=== PATIENT | male | born 1950 | race Caucasian/White ===

== ENCOUNTER 2019-11-03 16:32 | Emergency (ER) | payer MEDICARE, OTHER ==
[~2019-11-03] VITALS: Ht 165.1 cm; Wt 104.3 kg
[~2019-11-03 16:32] MED LIST: ACTOS15 MG PO; ASPIRIN81 M1 PO; DIOVAN80 MG PO; LOVASTATIN20 MG PO; VERAPAMIL ER240 MG PO
[2019-11-03] MEDS ORDERED: SODIUM CHLORIDE 0.9% 1000ML 1,000 ML IV STA (16:54)
[2019-11-03] MEDS ORDERED: AZITHROMYCIN 500MG/NS 250 ML 250 ML IV ONE (17:00)
[2019-11-03] MEDS ORDERED: CEFTRIAXONE SOD 1 GM/NS 50 ML 50 ML IV ONE (17:00)
[2019-11-03 17:12] LABS: BASOPHILS % 0.5 % (0.0-1.0); EOSINOPHILS # (AUTO) 0.2 (0.0-0.4); EOSINOPHILS % 2.1 % (0.0-6.0); HEMATOCRIT 35.2 % (38.2-49.6); HEMOGLOBIN 11.2 g/dL (14.0-18.0); LYMPHOCYTES # (AUTO) 2.2 (1.0-3.2); LYMPHOCYTES % 24.9 % (18.0-39.1); MEAN CORPUSCULAR HEMOGLOBIN 30.1 pg (28-32); MEAN CORPUSCULAR HGB CONC 31.8 g/dL (31-35); MEAN CORPUSCULAR VOLUME 94.6 fL (81-99); MONOCYTES # (AUTO) 0.6 (0.2-0.8); MONOCYTES % 7.3 % (4.4-11.3); NEUTROPHILS # (AUTO) 5.4 (2.1-6.9); NEUTROPHILS % 61.1 % (38.7-80.0); PLATELET COUNT 267 x10e3/uL (140-360); RED BLOOD COUNT 3.72 x10e6/uL (4.3-5.7); RED CELL DISTRIBUTION WIDTH 13.7 % (11.7-14.4)
[2019-11-03 17:23] LABS: INR 1.05; PROTHROMBIN TIME 14.4 seconds (11.9-14.5)
[2019-11-03 17:24] LABS: PARTIAL THROMBOPLASTIN TIME 35.8 seconds (23.8-35.5)
[2019-11-03 17:38] LABS: CREATINE KINASE MB 8.6 ng/mL (0-5.0)
[2019-11-03 17:39] LABS: ALBUMIN 2.3 g/dL (3.5-5.0); ALBUMIN/GLOBULIN RATIO 0.4 (0.8-2.0); CALCIUM 9.6 mg/dL (8.4-10.2); CREATININE, SERUM 6.52 mg/dL (0.72-1.25); MAGNESIUM 2.7 MG/DL (1.3-2.1)
[2019-11-03 17:52] LABS: B-TYPE NATRIURETIC PEPTIDE2 11.8 pg/mL (0-100)
--- NOTE | 2019-11-03 17:54 | Diagnostic Imaging Report ---
Examination: Single AP view of the chest. COMPARISON: None. INDICATION: Chest breath DISCUSSION: Lines/tubes: None. Lungs: Bilateral ground glass airspace consolidations. Pleura: No pleural effusion or pneumothorax. Heart and mediastinum: The heart and the mediastinum are unremarkable. Bones and soft tissues: No acute bony abnormalities. IMPRESSION: 1. Multifocal pneumonia Signed by: Dr. Jauqan Bro M.D. on 11/03/2019 5:51 PM
--- NOTE | 2019-11-03 18:58 | NUR ---
report given to John ESTRELLA
--- NOTE | 2019-11-03 19:01 | NUR ---
walking rounds with russell hutchins
[2019-11-03] MEDS ORDERED: SODIUM BICARBONATE 8.4% INJ 50 ML SYR IV STA (21:04)
[2019-11-03] MEDS ORDERED: SOD POLYSTYRENE SULFONATE SUSP 15 GM/60 ML BTL PO ONE (21:15)
--- NOTE | 2019-11-04 00:53 | Emergency Department Note ---
History of Present Illnes History of Present Illness Chief Complaint: Respiratory History of Present Illness This is a 69 year old male arrives today via cough fever and generalized malaise. Historian: Patient Arrival Mode: Car Apple Picking Supervisor Required: Yes Past Medical/Family History Physician Review I have reviewed the patient's past medical and family history. Any updates have been documented here. Past Medical History Recent Fever: No Clinical Suspicion of Infectio: Yes New/Unexplained Change in Ment: No Past Medical History: Hypertension Other Medical History: KIDNEY DISEASE Other Surgery: ROTATOR CUFF Social History Smoking Cessation: Never Smoker Counseling Performed: No Alcohol Use: None Any Illegal Drug Use: No Other Last Tetanus: UNK Any Pre-Existing Lines (PICC,: No Review of Systems Review of Systems Constitutional: Reports as per HPI, Reports fever EENTM: Reports no symptoms Cardiovascular: Reports no symptoms Respiratory: Reports as per HPI, Reports cough Gastrointestinal: Reports no symptoms Genitourinary: Reports no symptoms Musculoskeletal: Reports no symptoms Integumentary: Reports no symptoms Neurological: Reports no symptoms Psychological: Reports no symptoms Endocrine: Reports no symptoms Hematological/Lymphatic: Reports no symptoms Physical Exam Related Data Allergies: Coded Allergies: No Known Allergies (Unverified , 06/16/12) Triage Vital Signs Vital Signs Date Time Temp Pulse Resp B/P (MAP) Pulse Ox O2 Delivery O2 Flow Rate FiO2 11/03/19 16:42 98.2 133 28 172/86 95 Room Air Vital signs reviewed: Yes Physical Exam CONSTITUTIONAL Constitutional: Present well-developed, Present well-nourished, Present obese HENT HENT: Present normocephalic, Present atraumatic, Present oropharynx clear/moist, Present nose normal HENT L/R: Present left ext ear normal, Present right ext ear normal EYES Eyes: Reports PERRL, Reports conjunctivae normal NECK Neck: Present ROM normal PULMONARY Pulmonary: Present effort normal, Present breath sounds normal CARDIOVASCULAR Cardiovascular: Present regular rhythm, Present heart sounds normal, Present capillary refill normal, Present normal rate GASTROINTESTINAL Abdominal: Present soft, Present nontender, Present bowel sounds normal GENITOURINARY Genitourinary: Present exam deferred SKIN Skin: Present warm, Present dry MUSCULOSKELETAL Musculoskeletal: Present ROM normal NEUROLOGICAL Neurological: Present alert, Present oriented x 3, Present no gross motor or sensory deficits PSYCHOLOGICAL Psychological: Present mood/affect normal, Present judgement normal Results Laboratory Result Diagram: 11/03/19 1701 11/03/19 1701 Laboratory Laboratory Tests Test 11/03/19 17:17 11/03/19 17:01 White Blood Count 8.77 x10e3/uL (4.8-10.8) Red Blood Count 3.72 x10e6/uL (4.3-5.7) Hemoglobin 11.2 g/dL (14.0-18.0) Hematocrit 35.2 % (38.2-49.6) Mean Corpuscular Volume 94.6 fL (81-99) Mean Corpuscular Hemoglobin 30.1 pg (28-32) Mean Corpuscular Hemoglobin Concent 31.8 g/dL (31-35) Red Cell Distribution Width 13.7 % (11.7-14.4) Platelet Count 267 x10e3/uL (140-360) Neutrophils (%) (Auto) 61.1 % (38.7-80.0) Lymphocytes (%) (Auto) 24.9 % (18.0-39.1) Monocytes (%) (Auto) 7.3 % (4.4-11.3) Eosinophils (%) (Auto) 2.1 % (0.0-6.0) Basophils (%) (Auto) 0.5 % (0.0-1.0) Neutrophils # (Auto) 5.4 (2.1-6.9) Lymphocytes # (Auto) 2.2 (1.0-3.2) Monocytes # (Auto) 0.6 (0.2-0.8) Eosinophils # (Auto) 0.2 (0.0-0.4) Basophils # (Auto) 0.0 (0.0-0.1) Absolute Immature Granulocyte (auto 0.36 x10e3/uL (0-0.1) Prothrombin Time 14.4 seconds (11.9-14.5) Prothromb Time International Ratio 1.05 Activated Partial Thromboplast Time 35.8 seconds (23.8-35.5) Sodium Level 139 mmol/L (136-145) Potassium Level 5.0 mmol/L (3.5-5.1) Chloride Level 110 mmol/L (98-107) Carbon Dioxide Level 15 mmol/L (22-29) Anion Gap 19.0 mmol/L (8-16) Blood Urea Nitrogen 148 mg/dL (7-26) Creatinine 6.52 mg/dL (0.72-1.25) Estimat Glomerular Filtration Rate 8 ML/MIN (60-) BUN/Creatinine Ratio 23 (6-25) Glucose Level 167 mg/dL (74-118) Lactic Acid Level 1.0 mmol/L (0.5-2.0) Calcium Level 9.6 mg/dL (8.4-10.2) Magnesium Level 2.7 MG/DL (1.3-2.1) Total Bilirubin 0.4 mg/dL (0.2-1.2) Aspartate Amino Transf (AST/SGOT) 15 IU/L (5-34) Alanine Aminotransferase (ALT/SGPT) 60 IU/L (0-55) Alkaline Phosphatase 56 IU/L (40-150) Creatine Kinase 73 IU/L (30-200) Creatine Kinase MB 8.60 ng/mL (0-5.0) Troponin I 0.015 ng/mL (0-0.300) B-Type Natriuretic Peptide 11.8 pg/mL (0-100) Total Protein 7.9 g/dL (6.5-8.1) Albumin 2.3 g/dL (3.5-5.0) Globulin 5.6 g/dL (2.3-3.5) Albumin/Globulin Ratio 0.4 (0.8-2.0) Lab results reviewed: Yes Imaging Imaging results reviewed: Yes Impressions IMPRESSION: 1. Multifocal pneumonia Assessment & Plan Medical Decision Making MDM 69-year-old male arrives to the ED with cough fever generalized malaise findings consistent with [place] 19. Patient knows he has a coronavirus. Patient noted to have a marked elevation his baseline creatinine from 2 to approximately 7. Bicarbonate noted to be low, potassium noted to be 5.0. Spoke to Dr. Duenas patient's overlock hemmer to agreed patient required hospital admission for further workup and management in the setting was acute on chronic renal failure. Patient required transfer to outside hospital secondary to [facility] capacity. Assessment & Plan Final Impression: (1) Acute on chronic renal failure (2) COVID-19 Last Vital Signs Date Time Temp Pulse Resp B/P (MAP) Pulse Ox O2 Delivery O2 Flow Rate FiO2 11/03/19 22:55 101 24 175/94 99 11/03/19 16:42 98.2 Room Air Home Meds Reported Medications Aspirin (ASPIRIN) 81 Mg Tablet, 81 MG PO DAILY 06/16/12 Verapamil Hcl (VERAPAMIL ER) 240 Mg Tabsr, 240 MG PO DAILY 06/16/12 Pioglitazone Hcl* (ACTOS*) 15 Mg Tablet, 15 MG PO DAILY 06/16/12 Valsartan (DIOVAN) 80 Mg Tab, 160 MG PO DAILY 06/16/12 Lovastatin (LOVASTATIN) 20 Mg Tablet, 40 MG PO BID 06/16/12 Medications in the ED Sodium Chloride 1,000 ml @ 0 mls/hr Q0M STAT IV Last administered on 11/03/19at 17:10; Admin Dose 999 MLS/HR; Start 11/03/19 at 16:54; Stop 11/03/19 at 16:58; Status DC Ceftriaxone Sodium 50 ml @ 100 mls/hr ONCE ONCE IV Last administered on 11/03/19at 17:10; Admin Dose 100 MLS/HR; Start 11/03/19 at 17:00; Stop 11/03/19 at 17:29; Status DC Azithromycin 250 ml @ 200 mls/hr NOW ONCE IV Last administered on 11/03/19at 17:32; Admin Dose 200 MLS/HR; Start 11/03/19 at 17:00; Stop 11/03/19 at 18:14; Status DC Sodium Bicarbonate 50 ml NOW STAT IV Last administered on 11/03/19at 21:16; Admin Dose 50 ML; Start 11/03/19 at 21:04; Stop 11/03/19 at 21:06; Status DC Sodium Polystyrene Sulfonate 30 gm ONCE ONCE PO Last administered on 11/03/19at 21:28; Admin Dose 30 GM; Start 11/03/19 at 21:15; Stop 11/03/19 at 21:16; Status DC MINDY MOCTEZUMA DO Nov 04, 2019 00:53
[2019-11-04 03:09] VITALS: BP 150/102
== END 2019-11-04 03:11 | disposition short-term general hospital (02) ==
LOC: ER 16:45
DX: U07.1 COVID-19 (principal); N17.9 Acute kidney failure, unspecified; R50.9 Fever, unspecified; R05 Cough; I10 Essential (primary) hypertension
CPT/HCPCS: 36415; 71045; 80053; 82550; 82553; 83605; 83735; 83880; 84484; 85025; 85610; 85730; 87040; 87635; 93005; 99284; J0456; J0696; J7030; U0002

== ENCOUNTER 2020-01-01 08:35 | Inpatient (IN) | payer MEDICARE, OTHER ==
[~2020-01-01] VITALS: Ht 165.1 cm; Wt 94.3 kg
--- NOTE | 2020-01-01 09:09 | Emergency Department Note ---
History of Present Illnes History of Present Illness Chief Complaint: General Medicine Complaints History of Present Illness This is a 69 year old male Chief Complaint Comment X 4 DAYS "FEELING BAD". DIZZINESS, WORSE WITH MOVEMENT. BILATERAL THIGH PAIN, MUSCLE WEAKNESS W/COVID. Dizziness is made worse by eating up and moving around. He has been doing more darker completely. He has pain to his proximal bilateral upper extremities and proximal bilateral lower extremities. Historian: Patient Arrival Mode: Car Additional Treatment ELECTRONIC INTEGRATED SYSTEMS MECHANIC: NONE Creative Writing Teacher Required: No Onset (how long ago): day(s) (4) Location: Extremitis Quality: dull Radiation: Reports non-radiation Severity: mild Onset quality: gradual Duration (how long): day(s) (4) Timing of current episode: constant Progression: unchanged Chronicity: new Context: Denies recent illness, Denies recent surgery Relieving factors: none Exacerbating factors: none Associated symptoms: Reports denies other symptoms Treatments prior to arrival: none Past Medical/Family History Physician Review I have reviewed the patient's past medical and family history. Any updates have been documented here. Past Medical History Recent Fever: No Clinical Suspicion of Infectio: No New/Unexplained Change in Ment: No Past Medical History: Hypertension, Diabetes, Hypothyroidism, Hyperlipedemia Other Medical History: KIDNEY DISEASE Other Surgery: ROTATOR CUFF Other Last Tetanus: UNK Review of Systems Review of Systems Constitutional: Reports as per HPI EENTM: Reports no symptoms Cardiovascular: Reports no symptoms Respiratory: Reports no symptoms Gastrointestinal: Reports no symptoms Genitourinary: Reports no symptoms Musculoskeletal: Reports as per HPI, Reports muscle pain Integumentary: Reports no symptoms Neurological: Reports no symptoms, Reports other (Light headed with ambulation) Psychological: Reports no symptoms Endocrine: Reports no symptoms Hematological/Lymphatic: Reports no symptoms Physical Exam Related Data Allergies: Coded Allergies: No Known Allergies (Unverified , 01/01/20) Triage Vital Signs Vital Signs Date Time Temp Pulse Resp B/P (MAP) Pulse Ox O2 Delivery O2 Flow Rate FiO2 01/01/20 08:59 98.2 79 18 126/84 98 Room Air Vital signs reviewed: Yes Physical Exam CONSTITUTIONAL Constitutional: Present well-developed, Present well-nourished HENT HENT: Present normocephalic, Present atraumatic, Present oropharynx clear/moist, Present nose normal HENT L/R: Present left ext ear normal, Present right ext ear normal EYES Eyes: Reports PERRL, Reports conjunctivae normal NECK Neck: Present ROM normal PULMONARY Pulmonary: Present effort normal, Present breath sounds normal CARDIOVASCULAR Cardiovascular: Present regular rhythm, Present heart sounds normal, Present capillary refill normal, Present normal rate GASTROINTESTINAL Abdominal: Present soft, Present nontender, Present bowel sounds normal GENITOURINARY Genitourinary: Present exam deferred SKIN Skin: Present warm, Present dry MUSCULOSKELETAL Musculoskeletal: Present ROM normal NEUROLOGICAL Neurological: Present alert, Present oriented x 3, Present no gross motor or sensory deficits; Absent cranial nerve deficit, Absent sensory deficit, Absent weakness PSYCHOLOGICAL Psychological: Present mood/affect normal, Present judgement normal Procedures 12 Lead ECG Interpretation ECG Interpretation : Creative Writing Teacher: Interpreted by ED physician Date: Jan 01, 2020 Prior ECG tracings: reviewed Rhythm: sinus rhythm Rate: normal BPM: 70 QRS axis: normal ST segments normal: Yes T waves normal: Yes Clinical Impression: non-specific ECG Assessment & Plan Medical Decision Making MDM 69-year-old male presents with generalized non-specific complaints such as muscle fatigue and pain. Additionally states he is occasionally lightheaded with ambulation. Examination is largely unremarkable. Initial differential includes stroke versus heart failure versus muscle pain. Workup significant for Rhabdomyolysis. He was given 2L NS and discussed with Dr. Peoples who has agreed to admit. Reassessment Reassessment time: 11:48 Reassessment Well appearing, NAD Assessment & Plan Final Impression: (1) Rhabdomyolysis Depart Disposition: ADMITTED Last Vital Signs Date Time Temp Pulse Resp B/P (MAP) Pulse Ox O2 Delivery O2 Flow Rate FiO2 01/01/20 08:59 98.2 79 18 126/84 98 Room Air Home Meds Reported Medications Aspirin (ASPIRIN) 81 Mg Tablet, 81 MG PO DAILY 06/16/12 Verapamil Hcl (VERAPAMIL ER) 240 Mg Tabsr, 240 MG PO DAILY 06/16/12 Pioglitazone Hcl* (ACTOS*) 15 Mg Tablet, 15 MG PO DAILY 06/16/12 Valsartan (DIOVAN) 80 Mg Tab, 160 MG PO DAILY 06/16/12 Lovastatin (LOVASTATIN) 20 Mg Tablet, 40 MG PO BID 06/16/12 ELISA PATTEN MD Jan 01, 2020 09:09
[2020-01-01 09:36] LABS: BASOPHILS % 0.3 % (0.0-1.0); EOSINOPHILS # (AUTO) 0.1 (0.0-0.4); EOSINOPHILS % 1.5 % (0.0-6.0); HEMATOCRIT 31.2 % (38.2-49.6); HEMOGLOBIN 10.1 g/dL (14.0-18.0); LYMPHOCYTES # (AUTO) 1.5 (1.0-3.2); LYMPHOCYTES % 15.8 % (18.0-39.1); MEAN CORPUSCULAR HEMOGLOBIN 30.6 pg (28-32); MEAN CORPUSCULAR HGB CONC 32.4 g/dL (31-35); MEAN CORPUSCULAR VOLUME 94.5 fL (81-99); MONOCYTES # (AUTO) 0.7 (0.2-0.8); MONOCYTES % 7.5 % (4.4-11.3); NEUTROPHILS # (AUTO) 6.8 (2.1-6.9); NEUTROPHILS % 74.5 % (38.7-80.0); PLATELET COUNT 247 x10e3/uL (140-360); RED CELL DISTRIBUTION WIDTH 13.9 % (11.7-14.4)
[2020-01-01 10:03] LABS: ALBUMIN 3.7 g/dL (3.5-5.0); ALBUMIN/GLOBULIN RATIO 1.4 (0.8-2.0); ANION GAP 12.9 mmol/L (8-16); CALCIUM 8.8 mg/dL (8.4-10.2); CREATININE, SERUM 3.6 mg/dL (0.72-1.25); POTASSIUM 4.9 mmol/L (3.5-5.1)
--- NOTE | 2020-01-01 10:07 | Diagnostic Imaging Report ---
EXAM: CHEST SINGLE (NOT PORTABLE) DATE: 01/01/2020 9:40 AM INDICATION: Dizziness, weakness COMPARISON: 11/03/2019 FINDINGS: The trachea is midline. There is minimal bibasilar atelectasis. The lungs are otherwise symmetrically expanded without evidence for large focal consolidation, pneumothorax, or significant pleural effusion. The cardiomediastinal silhouette is stable in appearance. No acute osseous abnormality is identified. The surrounding soft tissues are unremarkable. IMPRESSION: No acute cardiopulmonary process identified. Signed by: Dr. Efrain Cooper MD on 01/01/2020 10:04 AM
--- NOTE | 2020-01-01 10:09 | Diagnostic Imaging Report ---
Examination: CT BRAIN WO History:Dizziness Comparison studies:None Technique: Axial images were obtained from the skull base to the vertex. Coronal and sagittal images reconstructed from the axial data. Dose modulation, iterative reconstruction, and/or weight based adjustment of the mA/kV was utilized to reduce the radiation dose to as low as reasonably achievable. Intravenous contrast: None Findings: Scalp: No abnormalities. Bones: No fractures, blastic or lytic lesions. Brain sulci: Appropriate for age. Ventricles: Normal in size and configuration. No hydrocephalus. Extra-axial space: No abnormalities. Parenchyma: No masses, hemorrhage, or acute or chronic cortical based vascular insults.. Sellar/suprasellar region: No abnormalities. Craniocervical junction: Patent foramen magnum. No Chiari one malformation. Incidental findings: Atherosclerotic calcification of the cavernous and supraclinoid internal carotid and V4 segments of the bilateral vertebral arteries. Impression: No acute intracranial abnormality. Signed by: Dr. Jenny Sarkar M.D. on 01/01/2020 10:06 AM
--- NOTE | 2020-01-01 10:09 | Diagnostic Imaging Report ---
EXAM: HIP RIGHT 2-3 VW (+/- PELVIS) DATE: 01/01/2020 9:40 AM INDICATION: Right hip pain COMPARISON: None FINDINGS: There is no evidence for acute fracture or dislocation within the pelvis or right hip. Bony mineralization is within normal limits. No focal lytic or blastic abnormality is identified. There are degenerative changes of the visualized lumbosacral spine. Mild/moderate degenerative changes noted of the bilateral hips. The visualized intrapelvic contents and surrounding soft tissues are unremarkable. IMPRESSION: No acute radiographic abnormality identified within the pelvis or right hip. Signed by: Dr. Efrain Cooper MD on 01/01/2020 10:06 AM
[2020-01-01] MEDS ORDERED: SODIUM CHLORIDE 0.9% 1000ML 1,000 ML IV SCH ×2 (10:30→12:00)
[2020-01-01 10:43] LABS: INR 0.96; PROTHROMBIN TIME 13.3 seconds (11.9-14.5)
[2020-01-01 11:04] LABS: BILIRUBIN,URINE NEGATIVE (NEGATIVE); CLARITY,URINE CLEAR (CLEAR); COLOR,URINE YELLOW (YELLOW); KETONES,URINE NEGATIVE (NEGATIVE); LEUKOCYTE ESTERASE ,URINE NEGATIVE (NEGATIVE); NITRITE,URINE NEGATIVE (NEGATIVE); PROTEIN,URINE DIPSTICK >=300 (NEGATIVE); URINE UROBILINOGEN 0.2 mg/dL (0.2 - 1)
[2020-01-01 11:22] LABS: AMORPHOUS SEDIMENT,URINE MODERATE (FEW); EPITHELIAL CELLS,URINE FEW /LPF; RBC,URINE 0-5 /HPF (0-5)
[2020-01-01 11:24] LABS: BACTERIA,URINE MODERATE /HPF
--- OUTSIDE RECORDS SUMMARY | 2020-01-01 13:04 | XMS REPORT | Continuity of Care Document ---
Author Author [facility] t Organization [facility] Address [address] [place] [phone] Phone Unavailable Care Team Providers Care Production Superintendent Hydro Name Role Phone NO, PCP PCP Unavailable Haritha Villa Attphys Unavailable Jj Worley Attphys Unavailable EDUARDO, Kimberlyn HALL Attphys Unavailable Brunilda, Jj Admphys Unavailable Payers Payer Name Policy Type Policy Number Effective Date Expiration Date Arnol Rodriguez Care Medicare Advantage [id number] [facility] Problems Condition Name Condition Details Condition Category Status Onset Date Resolution Date Last Treatment Date Treating Clinician Comments Source Acute renal failure superimposed on chronic kidney disease P sangeethalem Active [facility] Infection due to severe acute respiratory syndrome coronavir us 2 (SARS-CoV-2) Problem Active [facility] Allergies, Adverse Reactions, Alerts This patient has no known allergies or adverse reactions. Social History Social Habit Start Date Stop Date Quantity Comments Source Sex Assigned At 1950 00:00:00 1950 00:[birth year]:00 Male [facility] Medications Ordered Medication Name Filled Medication Name Start Date Stop Da te Current Medication? Ordering Clinician Indication Dosage Frequency Signature (SIG) Comments Components Source Aspirin Aspirin Yes 81 Daily [facility] Lovastatin Lovastatin Yes 40 Twice A Day [facility] Pioglitazone Hcl (Actos*) 15 Mg TABLET Pioglitazone Hcl (Actos*) 15 Mg TABLET Yes 15 Daily [facility] Valsartan (Diovan) 80 Mg TAB Valsartan (Diovan) 80 Mg TAB Y es 160 Daily [facility] Verapamil Hcl (Verapamil Er) 240 Mg TABSR Verapamil Hc l (Verapamil Er) 240 Mg TABSR Yes 240 Daily [facility] Vital Signs Vital Name Observation Time Observation Value Comments Source Body Temperature 2019-11-04 03:09:00 98.9 [degF] [facility] Weight 2019-11-03 16:42:00 230 [lb_av] [facility] BMI (Body Mass Index) 2019-11-03 16:42:00 38.3 kg/m2 [facility] Procedures This patient has no known procedures. Encounters Start Date/Time End Date/Time Encounter Type Admission Type [facility] Care Department Encounter ID Source 2019-11-03 16:45:00 2019-11-04 03:11:00 Departed Emergency Room 1 [place] [facility] [id number] [facility] Results Test Description Test Time Test Comments Results Result Comments Source CT BRAIN WO 2020-01-01 10:05:00 [place] [address] Patient Name: DANNY ONEIL MR #: [id number] : 1950 Age/Sex: 69/M Req #: [id number] Adm Physician: Ordered by: Elisa Villa MD Report #: [id number] Location: ER Room/Bed: Procedure: [id number] CT/CT BRAIN WO Exam Date: 01/01/20 Exam Time: 914 REPORT STATUS: Signed Examination: CT BRAIN WO History:Dizziness Comparison studies:None Technique: Axial images were obtained from the skull base to the vertex. Coronal and sagittal images reconstructed from the axial data. Dose modulation, iterative reconstruction, and/or weight based adjustment of the mA/kV was utilized to reduce the radiation dose to as low as reasonably achievable. Intravenous contrast: None Findings: Scalp: No abnormalities. Bones: No fractures, blastic or lytic lesions. Brain sulci: Appropriate for age. Ventricles: Normal in size and configuration. No hydrocephalus. Extra-axial space: No abnormalities. Parenchyma: No masses, hemorrhage, or acute or chronic cortical based vascular insults.. Sellar/suprasellar region: No abnormalities. Craniocervical junction: Patent foramen magnum. No Chiari one malformation. Incidental findings: Atherosclerotic calcification of the cavernous and supraclinoid internal carotid and V4 segments of the bilateral vertebral arteries. Impression: No acute intracranial abnormality. Signed by: Dr. Sudheer Sarkar M.D. on 01/01/2020 10:06 AM Dictated By: SUDHEER ERAZO MD 1006 Transcribed By: REENA on 01/01/20 1006 COPY TO: ELISA VILLA MD HIP RIGHT 2-3 VW (+/- PELVIS) 2020-01-01 10:04:00 [place] [address] Patient Name: DANNY ONEIL MR #: [id number] : 1950 Age/Sex: 69/M Req #: [id number] Adm Physician: Ordered by: Elisa Villa MD Report #: [id number] Location: Room/Bed: Procedure: DX/HIP RIGHT 2-3 VW (+/- PELVIS) Exam Date: Exam Time: REPORT STATUS: Signed EXAM: HIP RIGHT 2-3 VW (+/- PELVIS) DATE: 01/01/2020 9:40 AM INDICATION: Right hip pain COMPARISON: None FINDINGS: There is no evidence for acute fracture or dislocation within the pelvis or right hip. Bony mineralization is within normal limits. No focal lytic or blastic abnormality is identified. There are degenerative changes of the visualized lumbosacral spine. Mild/moderate degenerative changes noted of the bilateral hips. The visualized intrapelvic contents and surrounding soft tissues are unremarkable. IMPRESSION: No acute radiographic abnormality identified within the pelvis or right hip. Signed by: Dr. Efrain Cooper MD on 01/01/2020 10:06 AM Dictated By: EFRAIN COOPER MD 1006 Transcribed By: REENA on 01/01/20 1006 COPY TO: ELISA VILLA MD CHEST SINGLE (NOT PORTABLE) 2020-01-01 10:03:00 [place] [address] Patient Name: DANNY ONEIL MR #: [id number] : 1950 Age/Sex: 69/M Req #: [id number] [facility] Physician: Ordered by: Elisa Villa MD Report #: [id number] Location: ER Room/Bed: Procedure: [id number] DX/CHEST SINGLE (NOT PORTABLE) Exam Date: 01/01/20 Exam Time: 939 REPORT STATUS: Signed EXAM: CHEST SINGLE (NOT PORTABLE) DATE: 01/01/2020 9:40 AM INDICATION: Dizziness, weakness COMPARISON: 11/03/2019 FINDINGS: The trachea is midline. There is minimal bibasilar atelectasis. The lungs are otherwise symmetrically expanded without evidence for large focal consolidation, pneumothorax, or significant pleural effusion. The cardiomediastinal silhouette is stable in appearance. No acute osseous abnormality is identified. The surrounding soft tissues are unremarkable. IMPRESSION: No acute cardiopulmonary process identified. Signed by: Dr. Efrain Cooper MD on 01/01/2020 10:04 AM Dictated By: EFRAIN COOPER MD 1004 Transcribed By: REENA on 01/01/20 1004 COPY TO: ELISA VILLA MD Accuchek 2019-11-07 13:15:00 Test Item Accuchek (test code = ACU) 180 mg/dL 70-110 H Indhpdmwh1875-98-68 05:36:00* Test Item Value Reference Range Interpretation Comments Chemistry (test code = NA-T) 141 mmol/L 136-145 N Chemistry (test code = K-T) 4.3 mmol/L 3.5-5.1 N Chemistry (test code = CL) 112 mmol/L 98-107 H Chemistry (test code = CO2) 19 mmol/L 23-31 L Chemistry (test code = ANGP) 14 mmol/L 10-20 N Chemistry (test code = BUN) 87 mg/dL 8.4-25.7 H Chemistry (test code = CREATT) 3.83 mg/dL 0.7-1.3 H Chemistry (test code = EGFRMDRD) 16 Reference Range for Estimated GFR: Greater than 90 mL/min/1.73 m2NOTE:The MDRD equation has not been validated for use with theelderly (over 70 years of age), women, patien tswith serious comorbid condition or persons with extremes ofbody size, muscle mass, or nutritional status. Chemistry (test code = GLU-T) 150 mg/dL 80-115 H Chemistry (test code = CA) 8.2 mg/dL 7.8-10.44 N Vrcfoketbr3589-23-78 05:11:00* Test Item Value Reference Range Interpretation Comments Hematology (test code = WBCT) 11.5 thou/uL 4.8-10.8 H Hematology (test code = RBCT) 3.02 mill/uL 4.70-6.10 L Hematology (test code = HGBT) 9.7 g/dL 14.0-18.0 L Hematology (test code = HCTT) 29.0 % 42.0-52.0 L Hematology (test code = MCV) 95.9 fL 78.0-98.0 N Hematology (test code = MCH) 32.1 pg 27.0-31.0 H Hematology (test code = MCHC) 33.4 g/dL 32.0-36.0 N Hematology (test code = RDW) 12.6 % 11.5-14.5 N Hematology (test code = PLTT) 159 thou/uL 130-400 N Hematology (test code = MPV) 10.0 fL 7.4-10.4 N Hematology (test code = %NEUT) 76.5 % 42.0-75.0 H Hematology (test code = %LYMPH) 17.2 % 21.0-51.0 L Hematology (test code = %MONO) 5.9 % 0.0-10.0 N Hematology (test code = %EOS) 0.2 % 0.0-10.0 N Hematology (test code = %BASO) 0.2 % 0.0-1.0 N Hematology (test code = NEUT#) 8.8 thou/uL 1.40-6.50 H Hematology (test code = LYMPH#) 2.0 thou/uL 1.20-3.40 N Hematology (test code = MONO#) 0.7 thou/uL 0.11-0.59 H Hematology (test code = EOS#) 0.0 thou/uL 0.0-0.7 N Hematology (test code = BASO#) 0.0 thou/uL 0.0-0.2 N Bekgdivj8177-15-17 21:08:00* Test Item Value Reference Range Interpretation Comments Accuchek (test code = ACU) 238 mg/dL 70-110 H Cexeyetp0925-35-54 16:27:00* Test Item Value Reference Range Interpretation Comments Accuchek (test code = ACU) 207 mg/dL 70-110 H Pxjxbzzj1747-73-05 13:04:00* Test Item Value Reference Range Interpretation Comments Accuchek (test code = ACU) 188 mg/dL 70-110 H Cirukvjz7793-19-26 06:08:00* Test Item Value Reference Range Interpretation Comments Accuchek (test code = ACU) 151 mg/dL 70-110 H Jmsacdtej3134-97-50 05:46:00* Test Item Value Reference Range Interpretation Comments Chemistry (test code = NA-T) 140 mmol/L 136-145 N Chemistry (test code = K-T) 4.1 mmol/L 3.5-5.1 N Chemistry (test code = CL) 113 mmol/L 98-107 H Chemistry (test code = CO2) 15 mmol/L 23-31 L Chemistry (test code = ANGP) 16 mmol/L 10-20 N Chemistry (test code = BUN) 101 mg/dL 8.4-25.7 H Chemistry (test code = CREATT) 4.19 mg/dL 0.7-1.3 H Chemistry (test code = EGFRMDRD) 14 Reference Range for Estimated GFR: Greater than 90 mL/min/1.73 m2NOTE:The MDRD equation has not been validated for use with theelderly (over 70 years of age), women, patien tswith serious comorbid condition or persons with extremes ofbody size, muscle mass, or nutritional status. Chemistry (test code = GLU-T) 151 mg/dL 80-115 H Chemistry (test code = CA) 8.2 mg/dL 7.8-10.44 N Ofdoryysix7566-83-68 05:18:00* Test Item Value Reference Range Interpretation Comments Hematology (test code = WBCT) 10.0 thou/uL 4.8-10.8 N Hematology (test code = RBCT) 2.90 mill/uL 4.70-6.10 L Hematology (test code = HGBT) 8.8 g/dL 14.0-18.0 L Hematology (test code = HCTT) 27.8 % 42.0-52.0 L Hematology (test code = MCV) 96.0 fL 78.0-98.0 N Hematology (test code = MCH) 30.5 pg 27.0-31.0 N Hematology (test code = MCHC) 31.8 g/dL 32.0-36.0 L Hematology (test code = RDW) 12.6 % 11.5-14.5 N Hematology (test code = PLTT) 155 thou/uL 130-400 N Hematology (test code = MPV) 10.1 fL 7.4-10.4 N Hematology (test code = %NEUT) 80.6 % 42.0-75.0 H Hematology (test code = %LYMPH) 14.4 % 21.0-51.0 L Hematology (test code = %MONO) 4.5 % 0.0-10.0 N Hematology (test code = %EOS) 0.5 % 0.0-10.0 N Hematology (test code = %BASO) 0.1 % 0.0-1.0 N Hematology (test code = NEUT#) 8.1 thou/uL 1.40-6.50 H Hematology (test code = LYMPH#) 1.4 thou/uL 1.20-3.40 N Hematology (test code = MONO#) 0.5 thou/uL 0.11-0.59 N Hematology (test code = EOS#) 0.1 thou/uL 0.0-0.7 N Hematology (test code = BASO#) 0.0 thou/uL 0.0-0.2 N Agrguohu9473-85-03 21:59:00* Test Item Value Reference Range Interpretation Comments Accuchek (test code = ACU) 201 mg/dL 70-110 H Hpfznnjz9498-15-13 20:36:00* Test Item Value Reference Range Interpretation Comments Accuchek (test code = ACU) 237 mg/dL 70-110 H Uomphuof2004-64-50 12:43:00* Test Item Value Reference Range Interpretation Comments Accuchek (test code = ACU) 199 mg/dL 70-110 H Bpmmhmgwp4177-33-12 05:52:00* Test Item Value Reference Range Interpretation Comments Chemistry (test code = NA-T) 137 mmol/L 136-145 N Chemistry (test code = K-T) 5.0 mmol/L 3.5-5.1 N Chemistry (test code = CL) 112 mmol/L 98-107 H Chemistry (test code = CO2) 14 mmol/L 23-31 L Chemistry (test code = ANGP) 16 mmol/L 10-20 N Chemistry (test code = BUN) 121 mg/dL 8.4-25.7 H Chemistry (test code = CREATT) 4.81 mg/dL 0.7-1.3 H Chemistry (test code = EGFRMDRD) 12 Reference Range for Estimated GFR: Greater than 90 mL/min/1.73 m2NOTE:The MDRD equation has not been validated for use with theelderly (over 70 years of age), women, patien tswith serious comorbid condition or persons with extremes ofbody size, muscle mass, or nutritional status. Chemistry (test code = GLU-T) 156 mg/dL 80-115 H Chemistry (test code = CA) 8.0 mg/dL 7.8-10.44 N Nqwonjst4411-21-40 05:30:00* Test Item Value Reference Range Interpretation Comments Accuchek (test code = ACU) 153 mg/dL 70-110 H Ohsrpmpc0972-78-54 22:02:00* Test Item Value Reference Range Interpretation Comments Accuchek (test code = ACU) 205 mg/dL 70-110 H Rzzrybwpxn0227-57-25 19:48:00* Test Item Value Reference Range Interpretation Comments Urinalysis (test code = UACLR) Light-Yellow Yellow Urinalysis (test code = UACLY) Clear Clear Urinalysis (test code = SPGR) 1.013 1.002-1.036 N Urinalysis (test code = MARIBETH) 5.5 5.0-9.0 N Urinalysis (test code = UALEU) Negative Hermann/uL Negative Urinalysis (test code = UANIT) Negative Negative Urinalysis (test code = PROUADIP) 100 mg/dL Neg-Trace A Urinalysis (test code = GLUCU) 50 mg/dL Negative Urinalysis (test code = KETU) Negative mg/dL Negative Urinalysis (test code = UAUROB) Normal mg/dL Less than 2 Urinalysis (test code = UABIL) Negative Negative Urinalysis (test code = UABLD) 1+ Negative A Urinalysis (test code = UARBC) 0-3 HPF 0-3 Urinalysis (test code = UAWBC) 0-3 HPF 0-3 Urinalysis (test code = UASQUAM) 0-3 HPF 0-3 Urinalysis (test code = UABAC) 1+ HPF None Seen A Urine Source: Urine Clean RzcshCtkvatog3980-17-24 17:10:00* Test Item Value Reference Range Interpretation Comments Accuchek (test code = ACU) 208 mg/dL 70-110 H Chemistry - Sjbmxcfe2351-88-36 15:10:00* Test Item Value Reference Range Interpretation Comments Chemistry - Specials (test code = LEYDI) 1885.78 ng/mL 22-322 H Ppsceojns4270-09-61 15:09:00* Test Item Value Reference Range Interpretation Comments Chemistry (test code = NA-T) 139 mmol/L 136-145 N Chemistry (test code = K-T) 4.8 mmol/L 3.5-5.1 N Chemistry (test code = CL) 110 mmol/L 98-107 H Chemistry (test code = CO2) 15 mmol/L 23-31 L Chemistry (test code = ANGP) 19 mmol/L 10-20 N Chemistry (test code = BUN) 131 mg/dL 8.4-25.7 H Chemistry (test code = CREATT) 5.68 mg/dL 0.7-1.3 H Chemistry (test code = EGFRMDRD) 10 Reference Range for Estimated GFR: Greater than 90 mL/min/1.73 m2NOTE:The MDRD equation has not been validated for use with theelderly (over 70 years of age), women, patien tswith serious comorbid condition or persons with extremes ofbody size, muscle mass, or nutritional status. Chemistry (test code = GLU-T) 212 mg/dL 80-115 H Chemistry (test code = CA) 9.0 mg/dL 7.8-10.44 N Chemistry (test code = TBILI-T) 0.3 mg/dL 0.2-1.2 N Chemistry (test code = TP) 7.6 g/dL 5.8-8.1 N Chemistry (test code = ALB) 3.2 g/dL 3.4-4.8 L Chemistry (test code = GLOB) 4.4 g/dL 2.4-3.5 H Chemistry (test code = AG) 0.7 g/dL 1.2-2.2 L Chemistry (test code = ALP) 60 U/L 40-110 N Chemistry (test code = AST) 16 U/L 5-34 N Chemistry (test code = ALT) 47 U/L 8-55 N What test does the doctor want? C-REACTIVE PROTEIN (CRP)Vdeiyquha2067-59-11 15:09:00* Test Item Value Reference Range Interpretation Comments Chemistry (test code = CRP) 6.00 mg/dL = or < 0.5 H What test does the doctor want? C-REACTIVE PROTEIN (CRP)Chemistry - Specials 2019-11-04 14:45:00* Test Item Value Reference Range Interpretation Comments Chemistry - Specials (test code = THBSAG) Non-Reactive S/CO NonReac tive Dmrrpetodi3874-19-61 14:25:00* Test Item Value Reference Range Interpretation Comments Hematology (test code = WBCT) 9.4 thou/uL 4.8-10.8 N Hematology (test code = RBCT) 3.41 mill/uL 4.70-6.10 L Hematology (test code = HGBT) 10.8 g/dL 14.0-18.0 L Hematology (test code = HCTT) 32.5 % 42.0-52.0 L Hematology (test code = MCV) 95.5 fL 78.0-98.0 N Hematology (test code = MCH) 31.6 pg 27.0-31.0 H Hematology (test code = MCHC) 33.1 g/dL 32.0-36.0 N Hematology (test code = RDW) 12.6 % 11.5-14.5 N Hematology (test code = PLTT) 193 thou/uL 130-400 N Hematology (test code = MPV) 9.3 fL 7.4-10.4 N Hematology (test code = %NEUT) 85.2 % 42.0-75.0 H Hematology (test code = %LYMPH) 10.4 % 21.0-51.0 L Hematology (test code = %MONO) 2.7 % 0.0-10.0 N Hematology (test code = %EOS) 1.4 % 0.0-10.0 N Hematology (test code = %BASO) 0.3 % 0.0-1.0 N Hematology (test code = NEUT#) 8.0 thou/uL 1.40-6.50 H Hematology (test code = LYMPH#) 1.0 thou/uL 1.20-3.40 L Hematology (test code = MONO#) 0.3 thou/uL 0.11-0.59 N Hematology (test code = EOS#) 0.1 thou/uL 0.0-0.7 N Hematology (test code = BASO#) 0.0 thou/uL 0.0-0.2 N Xmzjhiqs8948-93-86 12:15:00* Test Item Value Reference Range Interpretation Comments Accuchek (test code = ACU) 204 mg/dL 70-110 H Nznzzfpbw4345-82-09 07:05:00* Test Item Value Reference Range Interpretation Comments Chemistry (test code = NA-T) 141 mmol/L 136-145 N Chemistry (test code = K-T) 4.4 mmol/L 3.5-5.1 N Chemistry (test code = CL) 111 mmol/L 98-107 H Chemistry (test code = CO2) 16 mmol/L 23-31 L Chemistry (test code = ANGP) 18 mmol/L 10-20 N Chemistry (test code = BUN) 132 mg/dL 8.4-25.7 H Chemistry (test code = CREATT) 5.77 mg/dL 0.7-1.3 H Chemistry (test code = EGFRMDRD) 10 Reference Range for Estimated GFR: Greater than 90 mL/min/1.73 m2NOTE:The MDRD equation has not been validated for use with theelderly (over 70 years of age), women, patien tswith serious comorbid condition or persons with extremes ofbody size, muscle mass, or nutritional status. Chemistry (test code = GLU-T) 178 mg/dL 80-115 H Chemistry (test code = CA) 8.7 mg/dL 7.8-10.44 N Zacujnbwo7369-64-06 07:00:00* Test Item Value Reference Range Interpretation Comments Chemistry (test code = TROPI-R) 0.023 ng/mL < 0.028 Reference Range 0.00 - 0.028 ng/mL Negative 0.029 - 0.29 ng/mL Indeterminate Greater or Equal to 0.3 ng/mL Strongly suggests [place] CHEST SINGLE (PORTABLE)2019-11-03 17:50:00 [facility] [address] [address] Patient Name: DANNY ONEIL MR #: [id number] : 1950 Age/Sex: 69/M Req #: [id number] Adm Physician: Ordered by: RAFAEL CLARK MD Report #: [id number] Location: ER Room/Bed: Procedure: [id number] DX/CHEST SINGLE (PORTABLE) Exam Date: 11/03/19 Exam Time: 1725 REPORT STATUS: Signed Examination: S mohsen AP view of the chest. COMPARISON: None. INDICATION: Chest breath DISCUSSION: Lines/tubes: None. Lungs: Bilateral ground gl ass airspace consolidations. Pleura: No pleural effusion or pneumothorax. Heart and mediastinum: The heart and the mediastinum are unremarkable. Bones and soft tissues: No acute bony abnormalities. IMPRESSION: 1. Multifocal pneumonia Signed by: Dr. Hoda Chaves M.D. on 020 5:51 PM Dictated By: HODA CHAVES MD 49 Transcribed By: REENA on 11/03/191750 COPY TO: RAFAEL CLARK MD Blood leukocytes automated count (number/volume)2019-11-03 17:01:00* Test Item Value Reference Range Interpretation Comments White Blood Count (test code = 6690-2) 8.77 4.8-10.8 [facility] count (number/volume)2019-11-03 17:01:00* Test Item Value Reference Range Interpretation Comments Red Blood Count (test code = 789-8) 3.72 4.3-5.7 [facility] hemoglobin measurement (moles/volume)2019-11-03 17:01:00* Test Item Value Reference Range Interpretation Comments Hemoglobin (test code = 84586-4) 11.2 14.0-18.0 [facility] blood hematocrit (volume fraction)2019-11-03 17:01:00* Test Item Value Reference Range Interpretation Comments Hematocrit (test code = 4544-3) 35.2 38.2-49.6 [facility] erythrocyte mean corpuscular giqvpw5096-56-39 17:01:00* Test Item Value Reference Range Interpretation Comments Mean Corpuscular Volume (test code = 787-2) 94.6 81-99 [facility] erythrocyte mean corpuscular hemoglobin (mass per erythrocyte)2019-11-03 17:01:00* Test Item Value Reference Range Interpretation Comments Mean Corpuscular Hemoglobin (test code = 785-6) 30.1 28-32 [facility] erythrocyte mean corpuscular hemoglobin concentration measurement (mass/volume)2019-11-03 17:01:00* Test Item Value Reference Range Interpretation Comments Mean Corpuscular Hemoglobin Concent (test code = 786-4) 31.8 31-35 [facility] WestRDW RhhRo-Ife3862-53-12 17:01:00* Test Item Value Reference Range Interpretation Comments Red Cell Distribution Width (test code = 43458-8) 13.7 11.7 -14.4 [facility] blood platelet count (count/volume)2019-11-03 17:01:00* Test Item Value Reference Range Interpretation Comments Platelet Count (test code = 777-3) 267 140-360 [facility] neutrophil count as percentage of total qzcpztchtn4529-52-83 17:01:00* Test Item Value Reference Range Interpretation Comments Neutrophils (%) (Auto) (test code = 13049-7) 61.1 38.7-80.0 [facility]Authigh[facility]ed [facility] lymphocyte count as percentage ot total qiibcocbly2725-13-70 17:01:00* Test Item Value Reference Range Interpretation Comments Lymphocytes (%) (Auto) (test code = 736-9) 24.9 18.0-39.1 [facility] blood monocyte count as percentage of total wrphxvbvdj8994-42-80 17:01:00* Test Item Value Reference Range Interpretation Comments Monocytes (%) (Auto) (test code = 5905-5) 7.3 4.4-11.3 [facility] blood eosinophil count as percentage of total gguaanpwvw7401-25-90 17:01:00* Test Item Value Reference Range Interpretation Comments Eosinophils (%) (Auto) (test code = 713-8) 2.1 0.0-6.0 [facility] blood basophil count as percentage of total mlhchctxoq7874-63-29 17:01:00* Test Item Value Reference Range Interpretation Comments Basophils (%) (Auto) (test code = 706-2) 0.5 0.0-1.0 [facility] WestFluoroscopic procedure less than one hour acinuvjx1905-64-00 17:01:00* Test Item Value Reference Range Interpretation Comments IM GRANULOCYTES % (test code = IM GRANULOCYTES %) 4.1 0.0- 1.0 [facility] blood neutrophil count 2019-11-03 17:01:00* Test Item Value Reference Range Interpretation Comments Neutrophils # (Auto) (test code = 751-8) 5.4 2.1-6.9 [facility] lymphocytes count (number/volume) 2019-11-03 17:01:00* Test Item Value Reference Range Interpretation Comments Lymphocytes # (Auto) (test code = 82005-8) 2.2 1.0-3.2 [facility] monocytes automated count (number/volume)2019-11-03 17:01:00* Test Item Value Reference Range Interpretation Comments Monocytes # (Auto) (test code = 742-7) 0.6 0.2-0.8 [facility] West[facility] blood eosinophil count 2019-11-03 17:01:00* Test Item Value Reference Range Interpretation Comments Eosinophils # (Auto) (test code = 711-2) 0.2 0.0-0.4 [facility] West[facility] blood basophil count (count/volume)2019-11-03 17:01:00* Test Item Value Reference Range Interpretation Comments Basophils # (Auto) (test code = 704-7) 0.0 0.0-0.1 [facility] WestFluoroscopic procedure less than one hour fwtvsvip0988-85-16 17:01:00* Test Item Value Reference Range Interpretation Comments Absolute Immature Granulocyte (auto (eugene t code = Absolute Immature Granulocyte (auto) 0.36 0-0.1 [facility] WestProthrombin time (PT) in platelet poor plasma by coagulation oyyzw6433-99-60 17:01:00* Test Item Value Reference Range Interpretation Comments Prothrombin Time (test code = 5902-2) 14.4 11.9-14.5 [facility] WestINR in Platelet poor plasma by Coagulation hvmrs4094-04-02 17:01:00* Test Item Value Reference Range Interpretation Comments Prothromb Time International Ratio (test code = 6301-6) 1.05 Oral Anticoagulant Therapy INR Values:1. Low Intensity Therapy 1.5 - 2.02 . Moderate Intensity Therapy 2.0 - 3.03. High Intensity Therapy(1) 2.5 - 3. 54. High Intensity Therapy(2) 3.0 - 4.05. Panic Value INR > 5.0 [facility] WestActivated partial thromboplastin time (aPTT) in platelet poor plasma by coagulation abdxh1852-94-29 17:01:00* Test Item Value Reference Range Interpretation Comments Activated Partial Thromboplast Time (test code = 75613-1) 35.8 23.8-35.5 [facility] plasma sodium measurement (moles/volume)2019-11-03 17:01:00* Test Item Value Reference Range Interpretation Comments Sodium Level (test code = 2951-2) 139 136-145 [facility] potassium measurement (moles/volume)2019-11-03 17:01:00* Test Item Value Reference Range Interpretation Comments Potassium Level (test code = 2823-3) 5.0 3.5-5.1 [facility] chloride measurement (moles/volume)2019-11-03 17:01:00* Test Item Value Reference Range Interpretation Comments Chloride Level (test code = 2075-0) 110 98-107 [facility] plasma carbon dioxide, total measurement (moles/volume)2019-11-03 17:01:00* Test Item Value Reference Range Interpretation Comments Carbon Dioxide Level (test code = 2028-9) 15 22-29 [facility] anion [id number] 17:01:00* Test Item Value Reference Range Interpretation Comments Anion Gap (test code = 88454-3) 19.0 8-16 [facility] urea nitrogen measurement (mass/volume)2019-11-03 17:01:00* Test Item Value Reference Range Interpretation Comments Blood Urea Nitrogen (test code = 3094-0) 148 7-26 [facility] creatinine measurement (mass/volume)2019-11-03 17:01:00* Test Item Value Reference Range Interpretation Comments Creatinine (test code = 2160-0) 6.52 0.72-1.25 [facility] urea nitrogen/creatinine mass [id number] 17:01:00* Test Item Value Reference Range Interpretation Comments BUN/Creatinine Ratio (test code = 3097-3) 23 6-25 [facility] glomerular filtration rate (GFR) [id number] 17:01:00* Test Item Value Reference Range Interpretation Comments Estimat Glomerular Filtration Rate (test code = 051935248) 8 >60 Ranges were taken from the National Kidney Disease Education Program and the [facility] literature.Reference ranges:60 or greater: Pahqvf88-72 ( for 3 consecutive months): Chronic kidney disease 15 or less: Kidney failureHCA [facility] Healthcare WestGlucose [id number] 17:01:00* Test Item Value Reference Range Interpretation Comments Glucose Level (test code = CKD1277) 167 74-118 [facility] calcium measurement (mass/volume)2019-11-03 17:01:00* Test Item Value Reference Range Interpretation Comments Calcium Level (test code = 69436-8) 9.6 8.4-10.2 [facility] WestFluoroscopic procedure less than one hour [id number] 17:01:00* Test Item Value Reference Range Interpretation Comments Lactic Acid Level (test code = Lactic Acid Level) 1.0 0.5- 2.0 [facility] magnesium measurement (mass/volume)2019-11-03 17:01:00* Test Item Value Reference Range Interpretation Comments Magnesium Level (test code = 87396-7) 2.7 1.3-2.1 [facility] total bilirubin measurement (mass/volume)2019-11-03 17:01:00* Test Item Value Reference Range Interpretation Comments Total Bilirubin (test code = 1975-2) 0.4 0.2-1.2 [facility] WestFluoroscopic procedure less than one hour [id number] 17:01:00* Test Item Value Reference Range Interpretation Comments Aspartate Amino Transf (AST/SGOT) (test code = Aspartate Amino Transf (AST/SGOT)) 15 5-34 [facility] alanine aminotransferase measurement (enzymatic activity/volume)2019-11-03 17:01:00* Test Item Value Reference Range Interpretation Comments Alanine Aminotransferase (ALT/SGPT) (test code = 1742-6) 60 0-55 [facility] protein measurement (mass/volume)2019-11-03 17:01:00* Test Item Value Reference Range Interpretation Comments Total Protein (test code = 2885-2) 7.9 6.5-8.1 [facility] albumin measurement (mass/volume)2019-11-03 17:01:00* Test Item Value Reference Range Interpretation Comments Albumin (test code = 1751-7) 2.3 3.5-5.0 [facility] WestPlasma globulin measurement (mass/volume) 2019-11-03 17:01:00* Test Item Value Reference Range Interpretation Comments Globulin (test code = 42205-1) 5.6 2.3-3.5 [facility] albumin/globulin mass [id number] 17:01:00* Test Item Value Reference Range Interpretation Comments Albumin/Globulin Ratio (test code = 1759-0) 0.4 0.8-2.0 [facility] alkaline phosphatase measurement (enzymatic activity/volume)2019-11-03 17:01:00* Test Item Value Reference Range Interpretation Comments Alkaline Phosphatase (test code = 6768-6) 56 40-150 [facility] WestBNP [id number] 17:01:00* Test Item Value Reference Range Interpretation Comments B-Type Natriuretic Peptide (test code = 65260-1) 11.8 0-100 [facility] creatine kinase measurement (enzymatic activity/volume)2019-11-03 17:01:00* Test Item Value Reference Range Interpretation Comments Creatine Kinase (test code = 2157-6) 73 30-200 [facility] plasma creatine kinase MB measurement (mass/volume)2019-11-03 17:01:00* Test Item Value Reference Range Interpretation Comments Creatine Kinase MB (test code = 07532-6) 8.60 0-5.0 [facility] WestTroponin I measurement by highly sensitive enzyme [id number] 17:01:00* Test Item Value Reference Range Interpretation Comments Troponin I (test code = 56535-9) 0.015 0-0.300 [facility]
[2020-01-01] MEDS ORDERED: DEXTROSE 50% SYRINGE 50 ML IV PRN (14:15)
--- NOTE | 2020-01-01 15:20 | NUR ---
pt is awake, alert, oriented x 4, no distress noted, vital signs WNL, receiving community educator was made aware that pt was sat up on the chair that was present at bedside, received no help in receiving unit
--- NOTE | 2020-01-01 16:00 | NUR ---
SBAR PHONE REPORT RECEIVED FROM ER NURSE, JOSE. PATIENT WAS RECEIVED AMBULATING AROUND THE ROOM WITH WALKER IN NO ACUTE DISTRESS. PATIENT WAS ORIENTED TO UNIT, ROOM, CALL LIGHT. HOME MEDICATONS WERE RECONCILED. PATIENT WAS EDUCATED ON FALL RISK PRECAUTIONS AND VERBALIZED UNDERSTANDING. PATIENT IS ABLE TO MAKE NEEDS KNOWN AND STATES NO FURTHER NEEDS. CALL LIGHT AND BELONGINGS PLACED NEARBY. WILL CONTINUE TO MONITOR.
[2020-01-01] MEDS: INSULIN REGULAR, HUMAN 100 UNIT/1 ML 3ML VIAL SQ SCH ×2 (16:30→21:38)
[2020-01-01 17:00] VITALS: BP_SYST 149; BP_DIAS 79; BP_DIAS 96
[2020-01-01] MEDS: CARVEDILOL 12.5 MG TAB PO SCH (17:46)
--- NOTE | 2020-01-01 17:47 | Diagnostic Imaging Report ---
EXAM: Renal Ultrasound INDICATION: Acute renal injury. COMPARISON: None TECHNIQUE: Transverse and longitudinal images of the kidneys and bladder were obtained. FINDINGS: Right Kidney: Size: 8.2 x 4.5 x 4.9 cm Echogenicity: Echogenic with loss of normal corticomedullary differentiation. Parenchymal thickness: Normal Collecting system: No hydronephrosis Stones: None Cyst/Mass: There is a right renal cyst which measures 2.1 x 1.3 x 2.0 cm. Others: Small amount of fluid seen around the right kidney, nonspecific finding. Left Kidney: Size: 10.2 x 5.0 x 5.3 cm Echogenicity: Echogenic with loss of normal corticomedullary differentiation. Parenchymal thickness: Normal Collecting system: No hydronephrosis Stones: None Cyst/Mass: There is a left renal cyst which measures 6.5 x 4.0 x 6.8 cm. Bladder: Low prevoid volume of 80 cc. Bilateral urinary jets were not seen. Others: The prostate gland was not seen. IMPRESSION: 1. Echogenic bilateral kidneys with loss of normal corticomedullary differentiation, suggestive of medical renal disease. 2. Bilateral renal cysts. Signed by: Hank Vicente MD on 01/01/2020 5:44 PM
[2020-01-01] MEDS: SODIUM BICARBONATE 8.4% SYRING 150 ML in DEXTROSE 5% 1,000 ML IV SCH (17:56)
--- NOTE | 2020-01-01 18:00 | NUR ---
PATIENT STATES HIS PCP IS DR. MICHELE RIDDLE AND HIS DOCK BOSS IS DR. TRENT ROSSI.
--- NOTE | 2020-01-01 18:12 | Consultation ---
DATE OF CONSULTATION: 01/01/2020 HISTORY OF PRESENT ILLNESS: A 69-year-old gentleman, who presented with weakness and pain on his thighs, mostly in hip area. The patient is subsequently admitted, found to have significantly elevated CK levels with acute kidney injury. The patient has existing history of chronic kidney disease, stage 4, sees Dr. Duenas as an outpatient. Has history of diabetes, maintained on glimepiride. He denies any history of kidney stone disease or prostatic enlargement. Denies any coronary artery disease or congestive heart failure. Denies CVA. Denies any back injury. Denies any [id number]-wwr-npyejjk use of nonsteroidal anti-inflammatory drug medication. However, he was tested positive for COVID in October, , went home and then he has been working out in the backyard, mowing his yard, etc., in the heat. A week ago, he started noticing soreness in his thighs and then subsequently weakness and pain. He is currently awake, alert, and oriented x3. No apparent distress. Denies shortness of breath or nausea. Currently, the patient is on normal saline at 200 mL an hour. Also on allopurinol 100 mg daily, aspirin 81 mg daily, carvedilol 12.5 b.i.d., valsartan 160 mg daily, which I am going to stop. ALLERGIES: NO APPARENT DRUG ALLERGIES. SOCIAL HISTORY: He does not smoke or drink. FAMILY HISTORY: Significant for diabetes. LABORATORY TESTS: Show white count 9.1, hemoglobin 10.1 with a potassium of 4.9, bicarbonate 22, creatinine 3.6, which appears to be close to his baseline, according to the history is given to me. His CK is found to be 32,685 with a BNP level of 36. LFTs; elevated AST and ALT 730 and 106. Had a hip x-ray done, please see official report, shows no acute radiographic abnormality. He had a chest x-ray, please see official report, shows no acute cardiopulmonary process. Had a brain CT, which shows no acute intracranial abnormality. PHYSICAL EXAMINATION: GENERAL: Awake, alert, and oriented x3, lying supine, in no apparent distress. VITAL SIGNS: Blood pressure 140/61, pulse rate 59, and afebrile. HEAD AND NECK: Cornea clear. Oral mucosa moist. Neck veins flat. LUNGS: Relatively clear. HEART: S1 and S2 audible. ABDOMEN: Otherwise soft and nontender. No apparent visceromegaly, distended abdomen, but flanks full, but no apparent visceromegaly. EXTREMITIES: Lower extremity, no edema. IMPRESSION AND PLAN: Underlying diabetic nephropathy, chronic kidney disease stage 3, now with rhabdomyolysis, likely secondary to heat exhaustion. Plan on working up. We will obtain a uric acid level, spot urine protein/creatinine ratio, and urine culture. Obtain kidney ultrasound. Discontinue existing IV fluids. Start IV bicarbonate with a goal to alkalinize his urine. We will send urinalysis. Discussed with the patient in detail. Plan of care discussed. I will discontinue valsartan as mentioned. MD HILDA Van/JUVENAL /[id number]
[2020-01-01] MEDS ORDERED: VITAMIN D350 MCG PO (19:21)
[2020-01-01] MEDS ORDERED: COREG12.5 MG PO (19:21)
[2020-01-01] MEDS ORDERED: CARDURA4 MG PO (19:21)
[2020-01-01] MEDS ORDERED: SODIUM BICARBO650 MG PO (19:21)
[2020-01-01] MEDS ORDERED: ALLOPURINOL100 MG PO (19:21)
[2020-01-01] MEDS ORDERED: FUROSEMIDE40 MG PO (19:22)
[2020-01-01 20:55] VITALS: BP 132/49
[2020-01-01 20:59] VITALS: BP 132/49
[2020-01-01] MEDS ORDERED: HYDRALAZINE HCL 20 MG/ML VIAL IV PRN (21:00)
[2020-01-01] MEDS ORDERED: ACETAMINOPHEN 325 MG TAB PO PRN (21:15)
--- NOTE | 2020-01-01 23:32 | History and Physical ---
PCP: Dr. Fariba Rowley at [facility]. CHIEF COMPLAINT: Generalized weakness and muscle aches, especially in the right hip area and arms. HISTORY OF PRESENT ILLNESS: This is a 69-year-old male with past medical history of hypertension, diabetes type 2, and CKD stage 3, presented to the ER with complaints of dizziness, generalized weakness, muscular pain in the right lower extremity and bilateral shoulder and arms. He denies any chest pain, shortness of breath, fever, chills, nausea, or vomiting. He denies syncope or ill contacts. He reports had tested positive for COVID in October and was treated. He reports this symptoms started about a week ago and has progressively gotten worse. He denies any diarrhea, nausea, vomiting, or change in medication. His creatinine was 3.6 and CK was 32,685, so started on aggressive IV fluids and admitted for rhabdomyolysis. PAST MEDICAL HISTORY: 1. Hypertension. 2. Diabetes type 2. 3. CKD stage 3 due to diabetes. 4. Gout. 5. High cholesterol. PAST SURGICAL HISTORY: 1. Right rotator cuff. 2. Partial thyroidectomy. FAMILY MEDICAL HISTORY: He reports both mother and father had diabetes and high blood pressure. SOCIAL HISTORY: He denies any tobacco, alcohol, or illicit drug use. ALLERGIES: NO KNOWN DRUG ALLERGIES. REVIEW OF SYSTEMS: Ten systems reviewed and negative except as reported in HPI. PHYSICAL EXAMINATION: VITAL SIGNS: Temperature 97.8, pulse is 79, respirations 20, blood pressure 149/96, pulse ox 100% on room air. GENERAL: No acute distress. HEENT: Normocephalic and atraumatic. NECK: Supple. LUNGS: Clear to auscultation. CARDIOVASCULAR: Regular rate and rhythm. GI: Soft and nontender. NEUROLOGIC: Alert, awake, and oriented x3. MUSCULOSKELETAL: Muscle aches in right hip and upper extremities. SKIN: Dry and intact. PSYCH: Calm. LABORATORY DATA: WBC 9.17, hemoglobin 10.1, hematocrit 31.2, and platelets 242. Sodium 137, potassium 4.9, CO2 of 22, anion gap 12.9, BUN is 62, creatinine 3.60, estimated GFR is 17, glucose 160, calcium 8.8, AST 730, ALT 106, creatine kinase 32,685. Troponin 0.028. BNP 38.8. Albumin 3.7. PT 13.3, INR . UA is clear, yellow, no leukocytes esterase with moderate bacteria, wbc's. Coronavirus PCR is pending. Urine culture is pending. IMAGING: Hip x-ray negative for fracture or acute process. Chest x-ray, no acute cardiopulmonary process. CT of the brain showed no acute intracranial abnormalities. Renal ultrasound is suggestive of medical renal disease and bilateral renal cysts. IMPRESSION: 1. Rhabdomyolysis with kidney injury. CK 32,685. Continue with aggressive IV fluid hydration, and Renal consulted. We will monitor on tele. All other electrolytes are negative. Pain management as needed. 2. Hypertension. Continue on carvedilol and hydralazine as needed. 3. Acute kidney injury with history of chronic kidney disease stage 3. Creatinine is 3.6. We will continue to hydrate, and renal ultrasound is suggestive of medical disease. Renal is following. 4. Elevated LFTs. We will check lipid panel, fasting and monitor trend. 5. Diabetes type 2. Sliding scale insulin. 6. Gout. Continue allopurinol. 7. Deep vein thrombosis prophylaxis. We will start Lovenox subcu. PLAN: To continue aggressive IV fluid hydration and continue to trend CK and BMP. Dictated by ARNULFO Mariano Letty Mercedes MD MY/MODL /[id number]
[2020-01-02] VITALS (8 sets, daily range): BP systolic 103–156; BP diastolic 58–69
[2020-01-02] MEDS: SODIUM BICARBONATE 8.4% SYRING 150 ML in DEXTROSE 5% 1,000 ML IV SCH ×4 (02:35→21:59)
[2020-01-02 05:39] LABS: BASOPHILS % 0.3 % (0.0-1.0); EOSINOPHILS # (AUTO) 0.2 (0.0-0.4); HEMOGLOBIN 9.8 g/dL (14.0-18.0); LYMPHOCYTES # (AUTO) 1.6 (1.0-3.2); LYMPHOCYTES % 21.5 % (18.0-39.1); MEAN CORPUSCULAR HEMOGLOBIN 32.2 pg (28-32); MEAN CORPUSCULAR HGB CONC 33.8 g/dL (31-35); MEAN CORPUSCULAR VOLUME 95.4 fL (81-99); MONOCYTES # (AUTO) 0.7 (0.2-0.8); MONOCYTES % 8.6 % (4.4-11.3); NEUTROPHILS # (AUTO) 5.1 (2.1-6.9); NEUTROPHILS % 67.2 % (38.7-80.0); PLATELET COUNT 218 x10e3/uL (140-360); RED BLOOD COUNT 3.04 x10e6/uL (4.3-5.7); RED CELL DISTRIBUTION WIDTH 13.9 % (11.7-14.4)
[2020-01-02 06:14] LABS: ALBUMIN 3.1 g/dL (3.5-5.0); ALBUMIN/GLOBULIN RATIO 1.3 (0.8-2.0); ANION GAP 19.4 mmol/L (8-16); CALCIUM 8.1 mg/dL (8.4-10.2); CREATININE, SERUM 3.62 mg/dL (0.72-1.25); POTASSIUM 4.4 mmol/L (3.5-5.1)
[2020-01-02 06:15] LABS: CHOL/HDL RATIO 4.1 (3.9-4.7)
--- NOTE | 2020-01-02 06:50 | NUR ---
BEDSIDE SBAR REPORT RECEIVED FROM TAMMI ESTRELLA. PATIENT RECEIVED RESTING IN BED EASILY AROUSED IN NO ACUTE DISTRESS. PATIENT IS ABLE TO MAKE NEEDS KNOWN AND DENIES NEEDS AT THIS TIME. PATIENT WAS EDUCATED ON FALL RISK PRECAUTIONS AND VERBALIZED UNDERSTANDING. CALL LIGHT AND BELONGINGS PLACED NEARBY. WILL CONTINUE TO MONITOR.
--- NOTE | 2020-01-02 08:25 | NUR ---
PER TAMMI RN IN REPORT,ADMITTING PHYSICIAN GAVE ORDERS FOR LOVENOX 40 MG YESTERDAY. PHARMACY RECOMMENDS LOVENOX 30 MG. [address] TO [address]. MARCIAL AND SPOKE WITH MIDLEVEL WHO WAS OK WITH CHANGING ORDER TO LOVENOX 30MG
[2020-01-02] MEDS ORDERED: VALSARTAN 160 MG TAB PO SCH (09:00)
[2020-01-02] MEDS ORDERED: NON-FORMULARY MEDICATION (Aspirin 81 MG) PO SCH (09:00)
[2020-01-02] MEDS ORDERED: VALSARTAN 80 MG TAB PO SCH (09:00)
[2020-01-02] MEDS: ASPIRIN 81 MG ENTERIC COATED PO SCH (10:00)
[2020-01-02] MEDS: CARVEDILOL 12.5 MG TAB PO SCH ×2 (10:01→16:16)
[2020-01-02] MEDS: ENOXAPARIN 30 MG/0.3 ML SYR SC SCH (10:01)
[2020-01-02] MEDS: ALLOPURINOL 100 MG TAB PO SCH (10:01)
[2020-01-02] MEDS: INSULIN REGULAR, HUMAN 100 UNIT/1 ML 3ML VIAL SQ SCH ×4 (10:02→21:37)
--- NOTE | 2020-01-02 15:12 | Progress Note ---
DATE: 01/02/2020 GEOLOGICAL AIDE: Dr. Cobb with Renal. SUBJECTIVE: The patient is seen sitting up in a chair, reports muscle soreness and pain is improving, he denies any chest pain, shortness of breath, fever, or chills. OBJECTIVE: VITAL SIGNS: Temperature 97.6, pulse is 67, respirations 20, blood pressure 147/63, and pulse ox is 100% on room air. GENERAL: No acute distress. HEENT: Normocephalic, atraumatic. NECK: Supple. LUNGS: Clear to auscultation. CARDIOVASCULAR: Regular rate and rhythm. GI: Soft and nontender. NEUROLOGIC: Alert, awake, and oriented x3. MUSCULOSKELETAL: Moves all extremities. SKIN: Dry. PSYCH: Calm. LABORATORY DATA: WBC 7.57, hemoglobin 9.8, hematocrit 29.0, and platelet is 218. Sodium is 140, potassium 4.4, BUN is 70, creatinine 3.62, estimated GFR is 17, AST 823, ALT 126, CK 19,267, triglycerides 62, and LDL 65. Urine culture, no growth. IMPRESSION: 1. Rhabdomyolysis with kidney injury. CK is trending down to 19,267. IV fluid is changed to bicarb per Renal. We will continue to monitor trend. 2. Hypertension. Continue on carvedilol and hydralazine as needed. 3. Acute kidney injury on chronic kidney disease 3. Creatinine is 3.62. We will continue to hydrate and monitor trend. 4. Elevated liver function tests. Lipid panel within normal limits, LFTs remain elevated. 5. Diabetes type 2. Continue sliding scale insulin. 6. Gout. Continue allopurinol. 7. Deep vein thrombosis prophylaxis. We will continue Lovenox subcu. Plan is to continue with bicarb and continue to trend CK and creatinine. Dictated by ARNULFO Mariano Letty Mercedes MD MY/MODL /[id number]
[2020-01-02] MEDS ORDERED: ENOXAPARIN SOD INJ 40 MG/0.4 ML SYR SC SCH (17:00)
[2020-01-03] VITALS (7 sets, daily range): BP systolic 119–157; BP diastolic 60–76
[2020-01-03 06:09] LABS: ALBUMIN 3.3 g/dL (3.5-5.0); ALBUMIN/GLOBULIN RATIO 1.3 (0.8-2.0); ANION GAP 19.1 mmol/L (8-16); CALCIUM 8.4 mg/dL (8.4-10.2); CREATININE, SERUM 3.64 mg/dL (0.72-1.25); POTASSIUM 4.1 mmol/L (3.5-5.1)
--- NOTE | 2020-01-03 07:21 | NUR ---
BEDSIDE SBAR REPORT RECEIVED FROM TAMMI RN, PM SHIFT. PATIENT FOUND SITTING IN CHAIR IN NO ACUTE DISTRESS. PT AAOX4, ABLE TO MAKE NEEDS KNOWN, AND DENIES ANY FURTHER NEEDS. PATIENT WAS EDUCATED ON FALL RISK PRECAUTIONS AND VERBALIZED UNDERSTANDING. CALL LIGHT AND BELONGINGS PLACED NEARBY. WILL CONTINUE TO MONITOR.
[2020-01-03] MEDS: INSULIN REGULAR, HUMAN 100 UNIT/1 ML 3ML VIAL SQ SCH ×4 (07:30→21:30)
[2020-01-03] MEDS: ENOXAPARIN 30 MG/0.3 ML SYR SC SCH (08:34)
[2020-01-03] MEDS: CARVEDILOL 12.5 MG TAB PO SCH ×2 (08:34→16:35)
[2020-01-03] MEDS: ASPIRIN 81 MG ENTERIC COATED PO SCH (08:34)
[2020-01-03] MEDS: ALLOPURINOL 100 MG TAB PO SCH (08:34)
[2020-01-03] MEDS: SODIUM BICARBONATE 8.4% SYRING 150 ML in DEXTROSE 5% 1,000 ML IV SCH ×3 (08:40→20:21)
--- NOTE | 2020-01-03 16:27 | Progress Note ---
DATE: 01/03/2020 CONSULTANTS: Dr. Cobb with Renal. SUBJECTIVE: The patient is sitting up in chair with no reports of shortness of breath, chest pain, fever, or chills. He reports muscle tenderness of the upper extremities and right lower extremity is improving significantly. Urine is clearing. OBJECTIVE: VITAL SIGNS: Temperature 98.1, pulse is 66, respirations 20, blood pressure 119/60, and pulse ox is 100% on room air. GENERAL: No acute distress. HEENT: Normocephalic, atraumatic. NECK: Supple. LUNGS: Clear to auscultation. CARDIOVASCULAR: Regular rate and rhythm. GI: Soft and nontender. NEUROLOGIC: Alert, awake, and oriented x3. MUSCULOSKELETAL: Moves all extremities. SKIN: Dry and intact. PSYCH: Calm. LABORATORY DATA: Sodium 142, potassium 4.1, CO2 of 28, BUN 70, creatinine 3.64, estimated GFR is 17, and glucose 123. AST 1031, ALT 179, CK 73,969. IMPRESSION: 1. Rhabdomyolysis with kidney injury. CK is still elevated at 75,000. Continue IV fluids per Renal, and continue to trend CK. 2. Hypertension. Continue on carvedilol and hydralazine as needed. 3. Acute kidney injury on chronic kidney disease 3. Creatinine is 3.64. We will continue to hydrate and trend per Renal. 4. Elevated liver function. Lipid panel within normal limits. LFT continues to remain high. 5. Diabetes type 2. Continue sliding scale. 6. Gout. Continue allopurinol. 7. Deep vein thrombosis prophylaxis. Continue Lovenox subcu. PLAN: To continue with IV fluid per Renal and continue to trend CK. Dictated by ARNULFO Mariano Afsanehching Jaquan Mercedes MD MY/MODL /[id number]
[2020-01-04] VITALS (8 sets, daily range): BP systolic 118–147; BP diastolic 58–67
[2020-01-04] MEDS: SODIUM BICARBONATE 8.4% SYRING 150 ML in DEXTROSE 5% 1,000 ML IV SCH (05:31)
[2020-01-04 06:38] LABS: ALBUMIN/GLOBULIN RATIO 1.3 (0.8-2.0); ANION GAP 20.9 mmol/L (8-16); CALCIUM 7.8 mg/dL (8.4-10.2); CREATININE, SERUM 3.64 mg/dL (0.72-1.25); POTASSIUM 3.9 mmol/L (3.5-5.1)
[2020-01-04] MEDS: ASPIRIN 81 MG ENTERIC COATED PO SCH (08:25)
[2020-01-04] MEDS: ALLOPURINOL 100 MG TAB PO SCH (08:26)
[2020-01-04] MEDS: ENOXAPARIN 30 MG/0.3 ML SYR SC SCH (08:26)
[2020-01-04] MEDS: CARVEDILOL 12.5 MG TAB PO SCH ×2 (08:26→16:40)
[2020-01-04] MEDS: INSULIN REGULAR, HUMAN 100 UNIT/1 ML 3ML VIAL SQ SCH ×3 (09:16→21:20)
--- NOTE | 2020-01-04 15:37 | Progress Note ---
DATE: 01/04/2020 SUBJECTIVE: CPK remains elevated. However, he is getting very swollen on bicarb drip. Creatinine is 3.6, stable. Baseline was 2.7 prior to the episode of acute tubular necrosis from rhabdomyolysis. PHYSICAL EXAMINATION: GENERAL: Sitting up, 1+ edema. VITAL SIGNS: Temperature 98.4, pulse 98, blood pressure 108/60. CHEST: Clear. ABDOMEN: Benign. NEUROLOGIC: Alert and appropriate. LABS: CPK over 100,000 still. Creatinine 3.64. Serum CO2 of 30 (on bicarb drip. AST 1200. Albumin is 3. ASSESSMENT: 1. Chronic kidney disease stage 4. 2. Diabetic nephropathy. 3. Hypertensive nephrosclerosis. 4. Acute kidney injury/acute tubular necrosis from the rhabdomyolysis. 5. Fluid overload is developing. PLAN: Cut down the bicarbonate drip at low dose chlorthalidone p.o. A.m. labs. We will follow along at this time. Given that the CPK is still so high, he may be at risk for more kidney injuries. I urged him to not try and push discharges yet. MD JOHN Kam/JUVENAL /[id number]
--- NOTE | 2020-01-04 19:00 | NUR ---
Report received from morning nurse. Pt alert and oriented to name, lying in bed HOB 60 degrees, watching TV, denies pain at this time. Call light within reach. Bed alarm on. Assisted with finding [employer] game on TV.
--- NOTE | 2020-01-04 20:02 | Progress Note ---
DATE: 01/04/2020 TECHNICAL SOLUTIONS ENGINEER: Dr. Cobb with Renal. SUBJECTIVE: The patient is sitting up with no complaint, no shortness of breath or chest pain, fever, or chills. OBJECTIVE: VITAL SIGNS: Temperature 98.1, pulse is 75, respirations 20, blood pressure 128/67, pulse ox is 100% on room air. GENERAL: No acute distress. HEENT: Normocephalic and atraumatic. NECK: Supple. LUNGS: Clear to auscultation. CARDIOVASCULAR: Regular rate and rhythm. GI: Soft and nontender. NEUROLOGIC: Alert, awake, and oriented x3. MUSCULOSKELETAL: Moves all extremities. SKIN: Dry. PSYCH: Calm. LABORATORY DATA: Sodium 140, potassium 3.9, CO2 of 30, BUN 73, creatinine 3.64, blood glucose 116, AST 1238, ALT 225. CK is 111,079. Albumin is 3. IMPRESSION: 1. Mild rhabdomyolysis with kidney injury. CK is increasing to 111,079. Bicarb has been decreased per Renal added chlorthalidone daily. We will continue to trend CK. 2. Hypertension. Continue carvedilol and hydralazine as needed. 3. Acute kidney injury with history of chronic kidney disease stage 3. Creatinine remains stable at 3.64. We will continue per Renal recommendations. 4. Elevated liver function. Lipid panel within normal limits. We will check abdominal ultrasound. 5. Type 2 diabetes. Continue sliding scale insulin. 6. Gout. Continue allopurinol. 7. Deep vein thrombosis prophylaxis. Lovenox subcu. PLAN: To continue bicarb drip per Renal and repeat BMP and CK in the morning. Dictated by ARNULFO Mariano Letty Mercedes MD MY/MODL /[id number]
[2020-01-05] VITALS (8 sets, daily range): BP systolic 121–146; BP diastolic 61–96
[2020-01-05] MEDS: SODIUM BICARBONATE 8.4% SYRING 150 ML in DEXTROSE 5% 1,000 ML IV SCH (06:30)
--- NOTE | 2020-01-05 06:45 | NUR ---
Accepted 8oz of warm prune juice. c/o no BM x5 days.
[2020-01-05 07:10] LABS: ANION GAP 17.1 mmol/L (8-16); CALCIUM 7.9 mg/dL (8.4-10.2); CREATININE, SERUM 3.92 mg/dL (0.72-1.25); PHOSPHORUS 5.2 MG/DL (2.3-4.7); POTASSIUM 4.1 mmol/L (3.5-5.1)
[2020-01-05] MEDS: ASPIRIN 81 MG ENTERIC COATED PO SCH (09:26)
[2020-01-05] MEDS: INSULIN REGULAR, HUMAN 100 UNIT/1 ML 3ML VIAL SQ SCH ×4 (09:26→21:00)
[2020-01-05] MEDS: CARVEDILOL 12.5 MG TAB PO SCH ×2 (09:26→16:40)
[2020-01-05] MEDS: CHLORTHALIDONE 25 MG TAB PO SCH (09:27)
[2020-01-05] MEDS: ALLOPURINOL 100 MG TAB PO SCH (09:27)
[2020-01-05] MEDS: ENOXAPARIN 30 MG/0.3 ML SYR SC SCH (09:28)
--- NOTE | 2020-01-05 19:20 | NUR ---
Report received from morning nurse. Pt alert and oriented to name, sitting in recliner at bedside, denies pain at this time. Call light within reach.
[2020-01-06] VITALS (9 sets, daily range): BP systolic 116–137; BP diastolic 47–64
[2020-01-06 05:56] LABS: ALBUMIN 2.8 g/dL (3.5-5.0); ALBUMIN/GLOBULIN RATIO 1.2 (0.8-2.0); ANION GAP 17.2 mmol/L (8-16); CALCIUM 8.2 mg/dL (8.4-10.2); CREATININE, SERUM 4.01 mg/dL (0.72-1.25); POTASSIUM 4.2 mmol/L (3.5-5.1)
--- NOTE | 2020-01-06 07:00 | NUR ---
BEDSIDE SHIFT REPORT RECEIVED FROM THE VEHICLE MECHANIC RN. EDUCATED PT ABOUT FALL PRECAUTIONS. PT VERBALIZED UNDERSTANDING. BED IS LOW AND LOCKED. SIDE RAILS X2. CALL LIGHT WITH IN EASY REACH. PT DENIES NEEDS AT THIS TIME.
[2020-01-06] MEDS: INSULIN REGULAR, HUMAN 100 UNIT/1 ML 3ML VIAL SQ SCH ×4 (07:20→21:00)
[2020-01-06] MEDS: ASPIRIN 81 MG ENTERIC COATED PO SCH (08:35)
[2020-01-06] MEDS: CARVEDILOL 12.5 MG TAB PO SCH ×2 (08:36→16:11)
[2020-01-06] MEDS: ALLOPURINOL 100 MG TAB PO SCH (08:37)
[2020-01-06] MEDS: CHLORTHALIDONE 25 MG TAB PO SCH (08:37)
[2020-01-06] MEDS: ENOXAPARIN 30 MG/0.3 ML SYR SC SCH (08:38)
--- NOTE | 2020-01-06 10:28 | Progress Note ---
DATE: 01/06/2020 SUBJECTIVE: Feeling better. Serum creatinine seems to be stabilizing. Continues to make urine. Minimal swelling. CPK is finally coming down as well as AST and ALT. OBJECTIVE: VITAL SIGNS: Temperature 98.5, pulse 75, blood pressure 135/53, trace edema. CHEST: Clear. GENERAL: No distress. NEURO: Gait seems to be normal. LABORATORY DATA: Potassium 4.2, creatinine 4.1, BUN 85. CK is 67,000. ASSESSMENT: 1. Acute kidney injury. 2. Acute tubular necrosis from rhabdomyolysis. 3. Chronic kidney disease, stage 4. 4. Underlying diabetic hypertensive end-organ damage. 5. Alkalosis deliberately induced with the bicarb drip. PLAN: Discontinue bicarb. Monitor chemistries. If stable to improve tomorrow, he probably could go home with close outpatient followup. For the time being, no more statin. MD JOHN Kam/MODL /[id number]
--- NOTE | 2020-01-06 13:33 | Diagnostic Imaging Report ---
EXAM: US ABDOMEN COMPLETE DATE: 01/06/2020 11:39 AM INDICATION: ^[id number] ^[id number] ^ELEVATED LFT'S COMPARISON: 01/01/2020 TECHNIQUE: Transverse and longitudinal greer scale and color doppler sonographic images of the abdomen were obtained. FINDINGS: LIVER 12.3 cm in the right midclavicular line. Normal echogenicity of the liver with normal contour, no masses. SPLEEN 11.5 cm in maximum diameter. Normal echogenicity, no masses. GALLBLADDER No gallbladder wall thickening, distension, stone, or pericholecystic fluid. Negative reported sonographic Bui's sign. BILE DUCTS No intra nor extra-hepatic biliary dilation. Common bile duct measures 0.3cm PANCREAS: Visualized portions are normal. RIGHT KIDNEY: 10.7 cm Echogenicity: Increased. Decreased cortical thickness Collecting System: No hydronephrosis Stones: None Cyst/Mass: Multiple cysts are identified with the largest measuring up to 1.3 cm at the medial mid pole and 0.7 cm at the lateral midpole. LEFT KIDNEY: 10.0 cm Echogenicity: Increased. Decreased cortical thickness Collecting System: No hydronephrosis Stones: None Cyst/Mass: Anechoic cyst identified superiorly measuring up to 6.6 cm. VESSELS: Aorta: Visualized portions are within normal size limits Inferior Vena Cava: Visualized portions are normal Main Portal Vein: 0.9 cm, normal size with hepatopetal flow. FREE FLUID: None IMPRESSION: 1. Negative for biliary dilatation or cholelithiasis. 2. Medical renal disease. Stable bilateral renal cysts. Signed by: You Castillo MD on 01/06/2020 1:30 PM
--- NOTE | 2020-01-06 17:56 | Progress Note ---
DATE: 01/06/2020 CONSULTANTS: Dr. Cobb with Renal. SUBJECTIVE: The patient is sitting up in a chair with no acute distress. He denies any chest pain, shortness of breath, nausea, vomiting. He is off bicarb. OBJECTIVE: VITAL SIGNS: Temperature 98.6, pulse is 71, respirations 20, blood pressure 116/64, pulse ox is 100% on room air. GENERAL: No acute distress. HEENT: Normocephalic, atraumatic. NECK: Supple. LUNGS: Clear to auscultation. CARDIOVASCULAR: Regular rate and rhythm. GI: Soft and nontender. NEUROLOGIC: Alert, awake, oriented x3. MUSCULOSKELETAL: Moves all extremities. SKIN: Dry and intact. PSYCH: Calm. LABORATORY DATA: Sodium 141, potassium 4.2, CO2 of 34, BUN 85, creatinine 4.01, estimated GFR 15, AST 982, ALT 257. CK 67,749. Abdominal ultrasound shows negative for biliary dilation or cholelithiasis, medical renal disease, stable bilateral renal cyst. IMPRESSION: 1. Rhabdomyolysis with kidney injury. CK is 67,749. The patient is off bicarb per Renal. We will continue to trend CK. 2. Hypertension. Continue carvedilol and hydralazine as needed. 3. Acute kidney injury with history of chronic kidney disease. Stage 3. Creatinine is 4.1 today. Further recommendations per Renal. 4. Elevated liver function. Lipid panel within normal limits. Abdominal ultrasound unremarkable. LFTs trending down. 5. Type 2 diabetes. Continue sliding scale. 6. Gout. Continue allopurinol. 7. Deep vein thrombosis prophylaxis. Lovenox subcu. PLAN: To continue trending CK and BMP. He is off bicarb drip per Renal. May discharge home if continues to improve. Dictated by ARNULFO Mariano Letty Mercedes MD MY/MODL /[id number]
--- NOTE | 2020-01-06 18:46 | Progress Note ---
DATE: 01/05/2020 SUBJECTIVE: Feels okay. Denies any nausea or vomiting. Minimal swelling. Creatinine continues to rise, however, without uremia. Serum CO2 is 32 because of bicarbonate drip for the rhabdomyolysis. CPK is 105,000, but it is coming down. He is continuing to make urine. Denied any dyspnea or uremic symptoms. LFTs were elevated, but not clear if it is related to his rhabdomyolysis. Currently off statin. He was taking lovastatin. ASSESSMENT: 1. Acute kidney injury/ATN. 2. Rhabdomyolysis. 3. Alkalosis, which is deliberate. 4. Minimal fluid overload. PLAN: 1. Continue chlorthalidone. Low-salt intake otherwise. He is getting some sodium bicarbonate, which I have minimized. 2. Mild hyperphosphatemia. For now, we will hold off on treating. 3. Continue current management. We will follow along. No emergent need for dialysis. I did explain to him all the above. 4. 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 However, he has in his favor recovered from ATN not that long ago and he had apparent coronavirus infection. MD JOHN Kam/JUVENAL /[id number]
--- NOTE | 2020-01-06 19:01 | Progress Note ---
DATE: 01/05/2020 CONSULTANTS: Dr. Cobb with Renal. SUBJECTIVE: The patient is seen in the room with no acute respiratory problems. Denies any chest pain, fever, chills, nausea, or vomiting. Muscle soreness in the right lower extremity and upper extremities, improving. But, feels like he has edema in the lower extremities. OBJECTIVE: VITAL SIGNS: Temperature 99.1, pulse is 72, respirations 20, blood pressure 122/66, pulse ox is 98% on room air. GENERAL: No acute distress. HEENT: Normocephalic, atraumatic. NECK: Supple. LUNGS: Clear to auscultation. CARDIOVASCULAR: Regular rate and rhythm. GI: Soft and nontender. NEUROLOGIC: Alert, awake, and oriented x3. MUSCULOSKELETAL: Moves all extremities. SKIN: Dry. PSYCH: Calm. LABORATORY DATA: Sodium 139, potassium 4.1, CO2 of 32, BUN is 80, creatinine 3.92, estimated GFR is 15, calcium 7.9, and phosphorus 5.2. CK 105,887. IMPRESSION: 1. Rhabdomyolysis with kidney injury. CK is 105,887. Continue bicarb per Renal. Added chlorthalidone daily. Continue to trend CK and BMP. 2. Hypertension. Continue carvedilol and hydralazine as needed. 3. Acute kidney injury with a history of chronic kidney disease 3. Creatinine is 3.92. Slightly elevated. Further recommendations per Renal. 4. Elevated liver function. Lipid panel within normal limits. Pending abdominal ultrasound. 5. Type 2 diabetes. Continue sliding scale insulin. 6. Gout. Continue allopurinol. 7. Deep vein thrombosis prophylaxis. Lovenox subcu. PLAN: To continue bicarb drip per Renal and repeat labs in a.m. Dictated by ARNULFO Mariano Letty Mercedes MD MY/MODL /[id number]
--- NOTE | 2020-01-06 19:44 | NUR ---
BEDSIDE SHIFT REPORT GIVEN TO THE MANAGER ELECTRICAL RN. PT DENIED FURTHER NEEDS.
--- NOTE | 2020-01-06 21:00 | NUR ---
PATIENT RESTING IN RECLINER IN STABLE CONDITION AOX4, NO SIGNS OF DISTRESS NOTED. PATIENT INSTRUCTED TO CALL FOR ASSISTANCE AND CALL LIGHT IS WITHIN REACH, WILL CONTINUE TO MONITOR.
[2020-01-07] VITALS: BP 137/61
[2020-01-07 04:00] VITALS: BP 125/68
[2020-01-07] MEDS: INSULIN REGULAR, HUMAN 100 UNIT/1 ML 3ML VIAL SQ SCH ×2 (07:30→11:30)
[2020-01-07 07:51] LABS: CALCIUM 8.5 mg/dL (8.4-10.2); CREATININE, SERUM 4.08 mg/dL (0.72-1.25); PHOSPHORUS 5.5 MG/DL (2.3-4.7)
[2020-01-07 08:00] VITALS: BP 125/68
[2020-01-07 08:19] VITALS: BP 124/64
--- NOTE | 2020-01-07 09:30 | Progress Note ---
DATE: 01/07/2020 SUBJECTIVE: Walking around, feeling better, continues to urinate, swelling appears to be decrease. OBJECTIVE: VITAL SIGNS: Temperature 96.5, pulse 76, blood pressure 125/76. CHEST: Clear. EXTREMITIES: Trace to 1+ edema. ABDOMEN: Benign. NEURO: Alert, appropriate. a ckd stage 4, with taylor from rhabdomyolysis, statin stopped alkalosis induced with iv bicarbonate initialy min fluid overload ckd from dm, htn p Today's labs are still pending. I had a long discussion with him on confident if he is reliable follow up closely. If chemistries are stable to better and the CPK continues come down, he probably could go home. No further statins. We will get labs within two days of him getting discharged as long as feasible. He usually used [facility]. MD JOHN Kam/JUVENAL /[id number]
--- NOTE | 2020-01-07 10:22 | NUR ---
spoke with Dr. Duenas about pt's labs; he states pt okay to be discharged.
[2020-01-07] MEDS: ASPIRIN 81 MG ENTERIC COATED PO SCH (10:30)
[2020-01-07] MEDS: CARVEDILOL 12.5 MG TAB PO SCH (10:30)
[2020-01-07] MEDS: ENOXAPARIN 30 MG/0.3 ML SYR SC SCH (10:30)
[2020-01-07] MEDS: ALLOPURINOL 100 MG TAB PO SCH (10:30)
[2020-01-07] MEDS: CHLORTHALIDONE 25 MG TAB PO SCH (10:30)
[2020-01-07 11:46] VITALS: BP 130/66
--- NOTE | 2020-01-07 22:29 | Discharge Summary ---
PCP: Dr. Fariba Rowley at [facility]. FINAL DISCHARGE DIAGNOSES: 1. Rhabdomyolysis with kidney injury. 2. Hypertension. 3. Acute kidney injury with history of chronic kidney disease stage 3. 4. Elevated liver function. 5. Type 2 diabetes. 6. Gout. CONSULTANTS: Dr. Cobb with Nephrology. PROCEDURES: None. HISTORY: Per HPI. HOSPITAL COURSE: This is a 69-year-old male with past medical history of hypertension, diabetes type 2, CKD stage 3, and gout, presented to the ER with complaints of body aches. He was noted to have rhabdomyolysis with kidney injury. CK upon arrival was over 32,000 and went up to 111,029. Patient Service Representative was consulted and was started on bicarb drip. His CK and BNP were trended daily. Renal ultrasound showed echogenic bilateral kidneys with loss of normal corticomedullary differentiation suggestive of medical renal disease and bilateral renal cysts. Abdominal ultrasound is negative for biliary dilation or cholelithiasis. Continue to trend his liver function tests. He denies any history of hepatitis. Discontinued his statin and today, he was noted his CK is down to 26,538, lower than his admission date. He denies any muscle aches, chest pain, shortness of breath, fever, or chills. He is cleared for discharge per Renal to follow up at [facility] in 2 days and follow up with Dr. Duenas thereafter for further evaluation. PHYSICAL EXAMINATION: VITAL SIGNS: Temperature 98.4, pulse is 72, respirations 20, blood pressure 124/64, pulse ox is 100% on room air. GENERAL: No acute distress. HEENT: Normocephalic and atraumatic. NECK: Supple. LUNGS: Clear to auscultation. CARDIOVASCULAR: Regular rate and rhythm. GI: Soft and nontender. NEUROLOGIC: Alert, awake, and oriented x3. MUSCULOSKELETAL: Moves all extremities. SKIN: Dry. PSYCH: Calm. CONDITION AT DISCHARGE: Improved and stable. DISCHARGE MEDICATIONS: Please see medication reconciliation list. Emphasized the need to stop taking statin and have a repeat lab in 2 days. FOLLOWUP: Follow up with Dr. Duenas in 2 days, follow up with PCP in 1 to 2 weeks. TIME SPENT: Total discharge time is 32 minutes. Dictated by ARNULFO Mariano Yiching MD WILFREDO Huertas/RUTHL /[id number] cc: Fariba Rowley MD [facility]
== END 2020-01-07 12:07 | disposition home or self-care (01) | DRG 557 ==
LOC: ER 08:58 → ERHOLD 11:54 → MED/SURG2 14:58 → OBSVTOIN 01-03 10:52
PROVIDERS: ADMIT Internal Medicine; ATTEND Internal Medicine
DX: M62.82 Rhabdomyolysis (principal); N17.0 Acute kidney failure with tubular necrosis; N18.4 Chronic kidney disease, stage 4 (severe); E87.3 Alkalosis; E11.22 Type 2 diabetes mellitus with diabetic chronic kidney disease; I12.9 Hypertensive chronic kidney disease with stage 1 through stage 4 chronic kidney disease, or unspecified chronic kidney disease; N18.3 Chronic kidney disease, stage 3 (moderate); Z79.4 Long term (current) use of insulin; M10.9 Gout, unspecified; R94.5 Abnormal results of liver function studies; Z86.19 Personal history of other infectious and parasitic diseases; E11.21 Type 2 diabetes mellitus with diabetic nephropathy; X30.XXXA Exposure to excessive natural heat, initial encounter; E78.00 Pure hypercholesterolemia, unspecified; E83.39 Other disorders of phosphorus metabolism; Z11.59 Encounter for screening for other viral diseases
CPT/HCPCS: 36415; 70450; 71045; 76700; 76770; 80048; 80053; 80061; 81001; 82550; 82948; 83880; 84100; 84484; 84550; 85025; 85610; 87086; 93005; 96361; 96372; 99284; G0378; J1650; J1817; J7070; U0002